=== PATIENT | female | born 1960 | race Caucasian/White ===

== ENCOUNTER → 2019-07-31 13:12 | Outpatient (CLI) | payer OTHER, SELFPAY ==
[2018-12-13 12:22] VITALS: BMI 32.5
--- NOTE | 2019-07-31 13:18 | BI_ITS ---
MAMMOGRAPHY - BILATERAL SCREENING REASON FOR EXAM: Female, 58 years old. Routine annual screening examination. PERTINENT HISTORY: Non-contributory. TECHNIQUE: Digital bilateral breast kyle (3D mammographic acquisition) in the CC and MLO projections. 2-D mediolateral oblique (MLO) and craniocaudad (CC) views of both breasts were obtained. CAD: Full Field Digital Mammography with Computer Added Detection was performed. COMPARISON: Comparison is made with prior outside examination dated December 05, 2017. FINDINGS: Breast Composition: There are scattered areas of fibroglandular density. There are no dominant masses or suspicious calcifications. Stable benign-appearing bilateral axillary lymph nodes. No other significant abnormalities are identified. There has been no significant change since the prior study. BI/SCREEN MAMM (CAD) W/KYLE BILAT IMPRESSION: Stable bilateral screening mammogram. Yearly follow-up mammogram recommended. (A) ASSESSMENT CATEGORY: BIRADS Category 2: Benign. A letter regarding these results will be sent to the patient by the facility within 30 days. Approximately 10% of breast cancers are not detected by mammography. A normal mammogram should not delay biopsy of a clinically suspicious abnormality. [id number] Electronically Signed: Bean King, at 15:05 EST , Service support ,
== END ==
PROVIDERS: PCP Internal Medicine; Referring Provider Internal Medicine; Visit Provider Internal Medicine
DX: Z12.31 Encounter for screening mammogram for malignant neoplasm of breast (principal)
CPT/HCPCS: 77063; 77067

== ENCOUNTER 2019-09-01 16:00 | Outpatient (RCR) | payer OTHER, SELFPAY ==
[2018-12-13 12:22] VITALS: BMI 32.5
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
--- NOTE | 2019-11-03 14:45 | HP.PT.NRP ---
ISAI COURTNEY was seen in my office for initial evaluation on 08/03/19. The following Plan of Care was established for this patient: Initial Frequency: 3x /Week Initial Duration: 2-4 Weeks Patient/Client Instruction: Educate patient on: Condition, Plan of Care For the Purpose of:: To decrease pain, To increase ROM, To improve muscle performance and motor function, To increase tolerance to activity/condition/position, To improve ability of physical actions for home/community/work/leisure Therapeutic Exercise to Include: Strength training, Flexibilty training, Gait and locomotor training, Neuromotor development, Passive ROM, Active ROM For the Purpose of:: To decrease pain, To improve muscle performance and motor function, To increase tolerance to activity/condition/position, To improve ability of physical actions for home/community/work/leisure, To improve gait and locomotor functions Manual Therapy Techniques to Include: Mobilization, Passive ROM, Soft tissue mobilization For the Purpose of:: To decrease pain, To increase ROM Cryotherapy (ice pack, ice massage): Yes Thermo therapy (hot pack): Yes Ultrasound (thermal/non thermal): Yes - nonthermal L torchanteric area For the Purpose of:: To decrease pain, To decrease swelling/inflammation This patient was last seen in our office 09/01/19. Pertinent comments regarding their Physical therapy will appear below: Pt seen 9 visits of POC and was 75% improved. She was to f/u three weeks later to ensure continued progress. At this point, it has been nearly two months and I will discontinue due to nonattendance. At this point I will be discontinuing this patient from physical therapy. I would be happy to see this patient again in the future if found appropriate by the physician. Thank you! Adolfo Nuñez, DPT, OCS, CSCS
== END 2019-09-01 19:00 | disposition home or self-care (01) ==
LOC: PT 16:00
PROVIDERS: PCP Internal Medicine; Referring Provider Internal Medicine; Visit Provider Internal Medicine
DX: M25.552 Pain in left hip (principal); M25.562 Pain in left knee; G89.29 Other chronic pain
CPT/HCPCS: 97035; 97110; 97140; 97161; 97530

== ENCOUNTER 2022-09-18 13:00 | Outpatient (RCR) | payer OTHER, SELFPAY ==
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
--- NOTE | 2023-02-05 10:13 | HP.PTDCNRP_ITS ---
Patient Information Patient Information: ISAI COURTNEY was seen in my office for initial evaluation on 08/20/22. The following Plan of Care was established for this patient: POC Established Initial Frequency: 2x /Week Initial Duration: 6 Weeks Anticipated Interventions Patient/Client Instruction: Educate patient on: Condition and Plan of Care For the Purpose of:: To decrease pain, To increase ROM, To improve muscle performance and motor function, To improve ability to perform ADL's, To increase tolerance to activity/condition/position, To improve ability of physical actions for home/community/work/leisure, To improve health of tissue, To decrease soft tissue restriction, To increase flexibility/ROM, To prevent re-injury and To improve ability to perform tasks related to life management Therapeutic Exercise to Include: Power training, Postural training, Flexibilty training, Passive ROM and Active ROM For the Purpose of:: To decrease pain, To increase ROM, To improve nutrient delivery to tissue, To increase oxygenation perfusion, To improve muscle performance and motor function, To increase tolerance to activit y/condition/position, To improve ability of physical actions for home/community/work/leisure, To improve health of tissue, To decrease soft tissue restriction and To increase flexibility/ROM Manual Therapy Techniques to Include: Mobilization For the Purpose of:: To decrease swelling/inflammation, To increase ROM, To improve nutrient delivery to tissue, To increase oxygenation perfusion, To improve health of tissue and To decrease soft tissue restriction TENS: Yes IF ES: Yes Cryotherapy (ice pack, ice massage): Yes Thermo therapy (hot pack): Yes Ultrasound (thermal/non thermal): Yes Last Seen Last Seen: This patient was last seen in our office . Pertinent comments regarding their Physical therapy will appear below: Patient underwent s/p surgery for clavicle resection for HEP ROM and strengthening ,but d/c to HEP At this point I will be discontinuing this patient from physical therapy. I would be happy to see this patient again in the future if found appropriate by the physician. Thank you! Bridger Maddox, PT, Cert MDT, OCS Balance/Gait/Functional tests Balance/Special Test Scores Quick DASH Score: 4.5450
== END 2022-09-18 19:00 | disposition home or self-care (01) ==
LOC: PT 13:00
PROVIDERS: PCP Internal Medicine; Referring Provider Orthopaedic Surgery; Visit Provider Orthopaedic Surgery
DX: M75.52 Bursitis of left shoulder
CPT/HCPCS: 97110; 97162